=== PATIENT | female | born 1960 | race Hispanic/Latino ===

== ENCOUNTER 2020-08-16 11:04 | Observation (INO) | payer SELFPAY ==
[2020-08-16 11:47] LABS: #Basophils 0.1 thou/uL (0.0-0.2); #Eosinphils 0.2 thou/uL (0.0-0.7); #Lymphocytes 2.2 thou/uL (1.20-3.40); #Monocytes 0.5 thou/uL (0.11-0.59); %Basophils 0.9 % (0.0-1.0); %Eosinophils 2.3 % (0.0-10.0); %Lymphocytes 24.4 % (21.0-51.0); %Monocytes 6.1 % (0.0-10.0); %Neutrophils 66.4 % (42.0-75.0); Hemoglobin 13.6 g/dL (12.0-16.0); Mean Corpuscular HGB CONC 33.8 g/dL (32.0-36.0); Mean Corpuscular Hemoglobin 31.6 pg (27.0-31.0); Mean Corpuscular Volume 93.5 fL (78.0-98.0); Mean Platelet Volume 8.1 fL (7.4-10.4); Platelet Count 237 thou/uL (130-400); RBC Distribution Width 11.5 % (11.5-14.5); Red Blood Cell (RBC) Count 4.31 mill/uL (4.20-5.40)
[2020-08-16] MEDS ORDERED: Aspirin 325 MG TAB ONE (11:47)
[2020-08-16] MEDS ORDERED: Labetalol HCl 100 MG/20 ML VIAL ONE (11:47)
[2020-08-16] MEDS ORDERED: Nitroglycerin 2% Ointment 1 INCH/1 GM Packet ONE (11:47)
--- NOTE | 2020-08-16 12:09 | RAD ---
PORTABLE CHEST: Date: 08/16/2020 HISTORY: Syncope. FINDINGS: Heart size within normal limits. There are atherosclerotic changes of the aorta. Lungs are clear of a ny infiltrative process. IMPRESSION: No active intrathoracic disease. POS: SARAH
[2020-08-16 12:20] LABS: ALT (SGPT) 21 U/L (8-55); AST (SGOT) 41 U/L (5-34); Albumin 3.8 g/dL (3.5-5.0); Alkaline Phosphatase 113 U/L (40-110); Anion Gap 14 mmol/L (10-20); BUN (Urea Nitrogen) 12 mg/dL (9.8-20.1); Bilirubin, Total 0.3 mg/dL (0.2-1.2); CK (CPK) 65 U/L (29-168); Calc. Creatinine Clearance 0 mL/min (70-130); Calcium 9.1 mg/dL (7.8-10.44); Carbon Dioxide 25 mmol/L (22-29); Chloride 104 mmol/L (98-107); Estimated GFR-MDRD Greater than 90; Globulin 3.9 g/dL (2.4-3.5); Glucose 127 mg/dL (70-105); Lipase 57 U/L (8-78); Potassium 3.6 mmol/L (3.5-5.1); Protein, Total 7.7 g/dL (6.0-8.3); Sodium 139 mmol/L (136-145)
[2020-08-16] MEDS ORDERED: Nitroglycerin 0.4 MG TAB (25 Tab Bottle) SL PRN (14:44)
[2020-08-16] MEDS ORDERED: Acetaminophen 650 MG Suppository PR PRN (14:47)
[2020-08-16 16:30] LABS: Lactic Acid 1.3 mmol/L (0.5-2.2)
[2020-08-16] MEDS ORDERED: Amlodipine 10 MG TAB PO SCH (17:30)
[2020-08-16] MEDS: Acetaminophen 325 MG TAB PO PRN (17:41)
[2020-08-16] MEDS ORDERED: Acetaminophen 325 MG TAB ONE (17:43)
--- NOTE | 2020-08-16 18:41 | PDOC.HHP ---
Hospitalist HPI - History of Present Illness History of Present Illness: ADMISSION DATE: 08/16/2020 TIME OF ASSESSMENT: 1400 PRIMARY CARE PHYSICIAN: None CHIEF COMPLAINT: Chest pain HPI: Patient presents to emergency department with complaints of chest heaviness that started at approximately 9:30 AM this morning. Immediately after she felt a tingling sensation in both hands and noted a metallic taste in her mouth. She lowered herself to the ground due to feeling lightheaded. When she was asked to rate the severity of her pain the patient states she did not have pain but felt the discomfort that was unable to rate in times of severity. Patient states that she received nitroglycerin and it immediately relieved her discomfort. Denies having any pain like this in the past. Has never been on any medications or been diagnosed with any comorbidities. Does not have a primary care physician and has never had any cardiac work-up in the past. Patient states she is a very active at home [place] and has animals that she cares for. Denies ever experiencing any type of exertional chest pain or shortness of breath. Denies any recent cough or hemoptysis. No fevers or chills. No nausea vomiting or abdominal pain. Other review of systems are negative. ED COURSE: In the emergency department the patient had an EKG which showed normal sinus rhythm with a heart rate of 90. No ST changes or T wave abnormalities were present. Lab studies done showed a normal full blood count. Initial troponin was negative. Sodium 139, potassium 3.6, BUN 12, creatinine 0.65, GFR greater than 90. Coast 127. LFTs notable for an elevated alkaline phosphatase of 113 and an AST of 41. Lipase normal. Chest x-ray is unremarkable. Initial presentation she was hypertensive at 177/96 therefore treated for h ypertensive urgency and given labetalol 20 mg IV Also given 325 mg of aspirin and 1 inch of Nitro-Bid. PAST MEDICAL HISTORY: None PAST SURGICAL HISTORY: None SOCIAL HISTORY: Patient reports a history of smoking but she quit a year ago. Currently she vapes but not on a regular basis. Denies any drug use. Reports daily alcohol consumption. She drinks 1 to 2 glasses of wine every night. FAMILY HISTORY: Her mother of a heart attack in her 80s. Her sisters have diabetes. ALLERGIES: Benadryl CURRENT MEDICATIONS: 1. Centrum silver 2. Biotin 3. Ginkoba 4. Fish oil Hospitalist ROS - Medication Medications: Active Medications Generic Name Dose Route Start Last Admin Trade Name Pricilla PRN Reason Stop Dose Admin Acetaminophen 650 mg 08/16/20 14:47 08/16/20 17:41 Acetaminophen 325 Mg Tab PO 650 mg Q4H PRN Administration Headache/Fever/Mild Pain (1-3) - Exam General Appearance: NAD, awake alert General - other findings: VS HR 86, BP 146/81, respirate 14, O2 sat 98% on room air Eye: PERRL, anicteric sclera ENT: normocephalic atraumatic, no oropharyngeal lesions Neck: supple, no lymphadenopathy Heart: RRR, no murmur, no gallops, no rubs, normal peripheral pulses Respiratory: CTAB, no wheezes, no rales, normal chest expansion Gastrointestinal: soft, non-tender, non-distended, normal bowel sounds Extremities: no edema Skin: normal turgor, no lesions, no rashes Neurological: cranial nerve grossly intact, normal sensation to touch Musculoskeletal: normal tone, normal strength Psychiatric: normal affect, normal behavior, A&O x 3 Hospitalist Results - Labs Result Diagrams: 08/16/20 11:25 08/16/20 11:25 Lab results: WBC 9.0 thou/uL (4.8-10.8) 08/16/20 11:25 Hgb 13.6 g/dL (12.0-16.0) 08/16/20 11:25 Hct 40.3 % (36.0-47.0) 08/16/20 11:25 MCV 93.5 fL (78.0-98.0) 08/16/20 11:25 Plt Count 237 thou/uL (130-400) 08/16/20 11:25 Neutrophils % 66.4 % (42.0-75.0) 08/16/20 11:25 Sodium 139 mmol/L (136-145) 08/16/20 11:25 Potassium 3.6 mmol/L (3.5-5.1) 08/16/20 11:25 Chloride 104 mmol/L (98-107) 08/16/20 11:25 Carbon Dioxide 25 mmol/L (22-29) 08/16/20 11:25 BUN 12 mg/dL (9.8-20.1) 08/16/20 11:25 Creatinine 0.65 mg/dL (0.6-1.1) 08/16/20 11:25 Glucose 127 mg/dL (70-105) H 08/16/20 11:25 Lactic Acid 1.3 mmol/L (0.5-2.2) 08/16/20 15:59 Calcium 9.1 mg/dL (7.8-10.44) 08/16/20 11:25 Total Bilirubin 0.3 mg/dL (0.2-1.2) 08/16/20 11:25 AST 41 U/L (5-34) H 08/16/20 11:25 ALT 21 U/L (8-55) 08/16/20 11:25 Alkaline Phosphatase 113 U/L (40-110) H 08/16/20 11:25 Creatine Kinase 65 U/L (29-168) 08/16/20 11:25 Troponin I Less than 0.010 ng/mL (< 0.028) 08/16/20 15:59 Serum Total Protein 7.7 g/dL (6.0-8.3) 08/16/20 11:25 Albumin 3.8 g/dL (3.5-5.0) 08/16/20 11:25 Lipase 57 U/L (8-78) 08/16/20 11:25 Hospitalist H&P A/P - Problem (1) Chest pain Code(s): R07.9 - CHEST PAIN, UNSPECIFIED Status: Acute Assessment and Plan: Cardiac monitoring. Continue to trend troponins. Check d-dimer. Stress test in the AM. NPO after midnight. (2) Hypertensive urgency Code(s): I16.0 - HYPERTENSIVE URGENCY Status: Acute Assessment and Plan: Monitor BP. Amlodipine 10 mg PO if SBP >150. Consider discharging on anti-hypertensives (no known history of HTN). (3) Transaminitis Code(s): R74.01 - ELEVATION OF LEVELS OF LIVER TRANSAMINASE LEVELS Status: Acute Assessment and Plan: Likely due to alcohol consumption. Repeat LFTs in the AM. (4) Daily consumption of alcohol Code(s): Z78.9 - OTHER SPECIFIED HEALTH STATUS Status: Acute Assessment and Plan: ASE protocol monitoring. Unknown hx of withdrawals. - Plan Plan: DVT prophylaxis: Patient is ambulatory. GI Prophylaxis: Famotidine 20 mg BID. CODE STATUS FULL
[2020-08-16 22:09] VITALS: BMI 27.5
[2020-08-16] MEDS ORDERED: Sodium Chloride 0.9% 1,000 ML IV SCH (23:00)
[2020-08-17 04:48] LABS: Hemoglobin A1c 5.6 % (4.0-6.0)
[2020-08-17 05:06] LABS: Cardiac Risk 3.7 (Less than 4.5)
[2020-08-17] MEDS: Acetaminophen 325 MG TAB PO PRN (06:32)
[2020-08-17] MEDS ORDERED: Bisacodyl 5 MG TAB PO PRN (08:49)
[2020-08-17] MEDS ORDERED: Ondansetron ODT 4 MG TAB PO PRN (08:49)
[2020-08-17] MEDS ORDERED: hydrALAZINE 20 MG/ML VIAL SLOW IVP PRN (08:49)
[2020-08-17] MEDS ORDERED: Loperamide HCl 2 MG CAP PO PRN (08:49)
[2020-08-17] MEDS ORDERED: Zolpidem Tartrate 5 MG TAB PO PRN (08:49)
[2020-08-17] MEDS ORDERED: Senokot S 8.6-50 MG TAB PO PRN (08:49)
[2020-08-17] MEDS ORDERED: Diabetic Tussin 200 MG/10 ML UDCUP PO PRN (08:49)
[2020-08-17] MEDS ORDERED: Ondansetron PF 4 MG/2 ML Vial IVP PRN (08:49)
[2020-08-17] MEDS ORDERED: HYDROcodone/Acetaminophen 5/325 mg Tablet PO PRN (08:49)
[2020-08-17] MEDS ORDERED: Cepastat Lozenges 1 LOZ PO PRN (08:49)
[2020-08-17] MEDS ORDERED: Calcium Carbonate 500 MG ChewTAB PO PRN (08:49)
[2020-08-17] MEDS ORDERED: Sodium Chloride 0.65% Nasal 44 ML BOT EA NARE PRN (08:49)
[2020-08-17] MEDS ORDERED: FLU VACC QS2020-21(6MOS UP)/PF 60 MCG/0.5 ML SYRINGE IM ONE (09:00)
[2020-08-17] MEDS ORDERED: Aspirin 81 mg Enteric Coated Tablet PO SCH (09:00)
--- NOTE | 2020-08-17 10:45 | PDOC.HOSPP ---
- Subjective Encounter Date: 08/17/20 Encounter Time: 07:30 Subjective: Patient seen and examined. No new complaints. No overnight events - Objective Vital Signs & Weight: Vital Signs (12 hours) Temp Pulse Resp BP Pulse Ox 08/17/20 07:22 97.8 F 70 28 H 143/67 H 97 08/17/20 04:00 97.7 F 77 16 129/70 95 08/17/20 00:00 98.0 F 74 18 116/63 93 L Weight Weight 170 lb 8 oz I&O: 08/16/20 08/17/20 08/18/20 06:59 06:59 06:59 Intake Total 330 Balance 330 Result Diagrams: 08/16/20 11:25 08/16/20 11:25 Radiology Reviewed by me: Yes EKG Reviewed by me: Yes Hospitalist ROS - Review of Systems Constitutional: denies: fever, chills, sweats, weakness, malaise, other ENT: denies: ear pain, ear discharge, nose pain, nose discharge, nose congestion, mouth pain, mouth swelling, throat pain, throat swelling, other Respiratory: denies: cough, dry, shortness of breath, hemoptysis, SOB with excertion, pleuritic pain, sputum, wheezing, other Cardiovascular: denies: chest pain, palpitations, orthopnea, paroxysmal noc. dyspnea, edema, light headedness, other Gastrointestinal: denies: nausea, vomiting, abdominal pain, diarrhea, constipation, melena, hematochezia, other Genitourinary: denies: dysuria, frequency, incontinence, hematuria, retention, other Musculoskeletal: denies: neck pain, shoulder pain, arm pain, back pain, hand pain, leg pain, foot pain, other Skin: denies: rash, lesions, radu, bruising, other - Medication Medications: Active Medications Generic Name Dose Route Start Last Admin Trade Name Freq PRN Reason Stop Dose Admin Acetaminophen 650 mg 08/16/20 14:47 08/17/20 06:32 Acetaminophen 325 Mg Tab PO 650 mg Q4H PRN Administration Headache/Fever/Mild Pain (1-3) Sodium Chloride 10 ml 08/16/20 21:00 08/17/20 01:27 Flush - Normal Saline 10 Ml Syringe IVF 10 ml Q12HR RAYMON Administration - Exam General Appearance: NAD, awake alert Eye: PERRL, anicteric sclera ENT: normocephalic atraumatic, no oropharyngeal lesions Neck: symmetric, no JVD, no thyromegaly Heart: RRR, no murmur, no gallops, no rubs Respiratory: CTAB, no wheezes, no rales, no ronchi Gastrointestinal: soft, non-tender, non-distended, normal bowel sounds Extremities: no cyanosis, no clubbing, no edema Skin: normal turgor, no lesions Neurological: no focal deficits Musculoskeletal: normal tone, normal strength Psychiatric: normal affect, normal behavior Hosp A/P (1) Chest pain Code(s): R07.9 - CHEST PAIN, UNSPECIFIED Status: Acute Qualifiers: Chest pain type: unspecified Qualified Code(s): R07.9 - Chest pain, unspecified (2) Hypertensive urgency Code(s): I16.0 - HYPERTENSIVE URGENCY Status: Chronic (3) Daily consumption of alcohol Code(s): Z78.9 - OTHER SPECIFIED HEALTH STATUS Status: Chronic (4) Transaminitis Code(s): R74.01 - ELEVATION OF LEVELS OF LIVER TRANSAMINASE LEVELS Status: Chronic - Plan old records reviewed/req Patient is plan for a stress test today, If stress test is negative then will consider discharge Regarding new hypertension I will start amlodipine 5 mg p.o. daily on discharge Patient is instructed to follow-up with primary care physician Patient is advised to avoid alcohol abuse.
[2020-08-17] MEDS ORDERED: ADENOSINE 60 MG/20 ML VIAL ONE (13:13)
--- NOTE | 2020-08-17 13:24 | NM ---
NUCLEAR MEDICINE CARDIAC MYOCARDIAL PERFUSION SPECT EJECTION FRACTION STUDY WALL MOTION CINE: DATE: 08/17/2020 HISTORY: 59-year-old hypertensive female smoker presents with acute chest pain TECHNIQUE: Number of days: 1 Rest study: Technetium 99m-sestamibi (Cardiolite) dose: 10.3 mCi Pharmacologic stress: Adenosine dose: 43.1 mg Stress study: Technetium 99m-sestamibi (Cardiolite) dose: 29.1 mCi FINDINGS: CARDIAC (MYOCARDIAL PERFUSION) SPECT Distribution of sestamibi is homogeneous throughout the left ventricle, with no fixed or reversible m yocardial perfusion defects. EJECTION FRACTION STUDY Left ventricular EF = 83 % WALL MOTION CINE The left ventricular wall motion is normal. There is normal systolic wall thickening. IMPRESSION: Normal.
[2020-08-17 13:53] LABS: SARS-CoV-2 MS2 Positive; SARS-CoV-2 N Gene Negative; SARS-CoV-2 S Gene Negative; SARS-CoV-2 by NAA Not Detected (NotDetected); SARS-CoV-2 orf1ab Negative
[2020-08-17 15:36] VITALS: BP 128/69; TEMP 98.1
--- NOTE | 2020-08-18 07:14 | PDOC.DS.DS ---
Provider - Provider Date of Admission: 08/16/20 13:29 Date of Discharge: 08/17/20 Admitting Provider: Fransisca Dubose MD Primary Care Physician: NO PCP PROVIDER Course - Hospital Course Hospital Course: 59-year-old female who has a history of alcohol abuse who came to emergency room with chest pain, patient was admitted for chest pain rule out acute coronary syndrome, during this admission patient was found with elevated blood pressure, she does not have any previous history of hypertension, patient had serial cardiac enzymes which were negative for any acute coronary syndrome, patient underwent stress test that came back negative. We started amlodipine on discha rge. Patient was counseled to avoid alcohol abuse. Resuscitation Status: 08/16/20 14:47 Resuscitation Status Routine Co-Sign Provider: Resuscitation Status: FULL: Full Resuscitation - Labs Lab Results: 08/16/20 11:25 08/16/20 11:25 Abnormal Lab Results - Last 48 hrs 08/16/20 11:25: MCH 31.6 H 08/16/20 11:25: AST 41 H, Alkaline Phosphatase 113 H, Globulin 3.9 H, Albumin/Globulin Ratio 1.0 L 08/16/20 15:59: D-Dimer Less than 0.27 L - Physical Exam Vitals: Weight Weight 170 lb 8 oz Physical Exam: The patient was seen and examined on the day of discharge. Problem - Problem (1) Chest pain Code(s): R07.9 - CHEST PAIN, UNSPECIFIED Status: Acute Qualifiers: Chest pain type: unspecified Qualified Code(s): R07.9 - Chest pain, unspecified (2) Hypertensive urgency Code(s): I16.0 - HYPERTENSIVE URGENCY Status: Chronic (3) Daily consumption of alcohol Code(s): Z78.9 - OTHER SPECIFIED HEALTH STATUS Status: Chronic (4) Transaminitis Code(s): R74.01 - ELEVATION OF LEVELS OF LIVER TRANSAMINASE LEVELS Status: Chronic Plan - Discharge Medications Prescriptions: Folic Acid 1 mg PO DAILY #30 tablet Amlodipine [Norvasc] 5 mg PO DAILY #30 tab Famotidine [Pepcid] 20 mg PO BID #60 tab Thiamine 100 mg PO DAILY #30 tab Cyanocobalamin (Vitamin B-12) [Vitamin B-12] 1,000 mcg PO DAILY #30 tab Home Medications: Medication Instructions Recorded Confirmed Type Amlodipine [Norvasc] 5 mg PO DAILY #30 tab 08/17/20 Rx Cyanocobalamin (Vitamin B-12) 1,000 mcg PO DAILY #30 tab 08/17/20 Rx [Vitamin B-12] Famotidine [Pepcid] 20 mg PO BID #60 tab 08/17/20 Rx Folic Acid 1 mg PO DAILY #30 tablet 08/17/20 Rx Thiamine 100 mg PO DAILY #30 tab 08/17/20 Rx Allergies: diphenhydramine [From Benadryl] Allergy (Verified 08/16/20 22:11) itching pt stated - Discharge Instructions Activity:: Activity as Tolerated Nourishment:: Heart Healthy Diet Therapies:: Not Applicable Equipment/Supplies:: Not Applicable IV Therapy:: Not Applicable - Follow up Plan Referrals: PROVIDER,NO PCP [Primary Care Provider] - Disposition: HOME Quality - Care Measures CORE MEASURES:: N/A
[2020-08-18] MEDS ORDERED: Cyanocobalamin (Vitamin B-12) 1,000 MCG TAB PO SCH (09:00)
== END 2020-08-17 16:16 | disposition home or self-care (01) ==
LOC: ERS 11:04 → ERHOLD 13:29 → 2SE 21:52
PROVIDERS: ADMIT Internal Medicine; ATTEND Internal Medicine
DX: I16.0 Hypertensive urgency (principal); R07.89 Other chest pain; R74.01 Elevation of levels of liver transaminase levels; Z79.82 Long term (current) use of aspirin; Z79.899 Other long term (current) drug therapy; Z87.891 Personal history of nicotine dependence; Z88.8 Allergy status to other drugs, medicaments and biological substances; Z20.828 Contact with and (suspected) exposure to other viral communicable diseases
CPT/HCPCS: 36415; 71045; 78452; 80053; 80061; 82550; 83036; 83605; 83690; 83735; 84443; 84484; 85025; 85379; 87635; 93005; 93017; 96374; A9500; G0378; J0153; U0003

== ENCOUNTER 2023-01-19 12:38 | Inpatient (IN) | payer SELFPAY ==
[2023-01-19 17:07] VITALS: BMI 27.6
[2023-01-19] MEDS ORDERED: hydrALAZINE 20 MG/ML VIAL SLOW IVP PRN (17:27)
[2023-01-19] MEDS ORDERED: Labetalol HCl 100 MG/20 ML VIAL SLOW IVP PRN (17:27)
[2023-01-19] MEDS ORDERED: Temazepam 15 MG CAP PO PRN (17:27)
[2023-01-19] MEDS ORDERED: Acetaminophen 325 MG TAB PO PRN (17:27)
[2023-01-19] MEDS ORDERED: Morphine 2 MG/ML VIAL SLOW IVP PRN (17:29)
[2023-01-19] MEDS ORDERED: Morphine 4 MG/ML VIAL SLOW IVP PRN (17:29)
[2023-01-19] MEDS ORDERED: Ondansetron ODT 4 MG TAB PO PRN (17:35)
[2023-01-19] MEDS ORDERED: Ondansetron PF 4 MG/2 ML Vial IVP PRN (17:35)
[2023-01-19] MEDS: Dexamethasone 4 mg/ml Vial SLOW IVP SCH ×2 (18:26→23:25)
[2023-01-19] MEDS: HYDROcodone/Acetaminophen 10/325 mg Tablet PO PRN ×2 (18:34→23:25)
[2023-01-20] MEDS: Dexamethasone 4 mg/ml Vial SLOW IVP SCH ×3 (05:43→17:20)
[2023-01-20 06:31] LABS: #Lymphocytes 1.6 thou/uL (1.20-3.40); #Monocytes 0.2 thou/uL (0.11-0.59); %Basophils 0.1 % (0.0-1.0); %Eosinophils 0.1 % (0.0-10.0); %Lymphocytes 13.7 % (21.0-51.0); %Neutrophils 84.1 % (42.0-75.0); Hemoglobin 12.6 g/dL (12.0-16.0); Mean Corpuscular HGB CONC 31.6 g/dL (32.0-36.0); Mean Corpuscular Hemoglobin 29.5 pg (27.0-31.0); Mean Corpuscular Volume 93.4 fl (78.0-98.0); Mean Platelet Volume 8.1 fL (7.4-10.4); Platelet Count 239 10x3/uL (130-400); Red Blood Cell (RBC) Count 4.26 mill/uL (4.20-5.40); White Blood Cell (WBC) Count 11.9 10x3/uL (4.8-10.8)
[2023-01-20 06:54] LABS: Anion Gap 13 mmol/L (10-20); BUN (Urea Nitrogen) 12 mg/dL (9.8-20.1); Calc. Creatinine Clearance 75 mL/min (70-130); Calcium 8.7 mg/dL (7.8-10.44); Carbon Dioxide 25 mmol/L (23-31); Chloride 103 mmol/L (98-107); Estimated GFR 70; Glucose 136 mg/dL (80-115); Sodium 137 mmol/L (136-145)
[2023-01-20] MEDS: HYDROcodone/Acetaminophen 10/325 mg Tablet PO PRN ×2 (08:42→15:02)
[2023-01-20] MEDS ORDERED: NIFEdipine XL 60 MG TAB PO SCH (09:00)
[2023-01-20] MEDS ORDERED: Lisinopril 20 MG TAB PO SCH (09:00)
[2023-01-20] MEDS ORDERED: Aspirin 81 mg Enteric Coated Tablet PO SCH (09:00)
[2023-01-20 20:33] VITALS: BP 142/78; TEMP 98.4
== END 2023-01-20 22:30 | disposition home or self-care (01) | DRG 54 ==
LOC: NEURO 16:42
PROVIDERS: ADMIT Internal Medicine; ATTEND Internal Medicine
DX: D42.0 Neoplasm of uncertain behavior of cerebral meninges (principal); G93.6 Cerebral edema; I16.0 Hypertensive urgency; I10 Essential (primary) hypertension; Z88.8 Allergy status to other drugs, medicaments and biological substances; Z79.899 Other long term (current) drug therapy; Z87.891 Personal history of nicotine dependence; Z80.42 Family history of malignant neoplasm of prostate
CPT/HCPCS: 36415; 80048; 85025; J1100

== ENCOUNTER 2023-01-24 14:04 | Inpatient (IN) | payer SELFPAY ==
[~2023-01-24 14:04] MED LIST: Iopamidol-370 76% 500 ML MDV (1 ML CHARGE) ONE
[2023-01-24 15:03] LABS: #Eosinphils 0.1 thou/uL (0.0-0.7); #Lymphocytes 2.5 thou/uL (1.20-3.40); #Neutrophils 13.3 thou/uL (1.40-6.50); %Basophils 0.1 % (0.0-1.0); %Eosinophils 0.3 % (0.0-10.0); %Lymphocytes 14.8 % (21.0-51.0); %Monocytes 6.1 % (0.0-10.0); %Neutrophils 78.7 % (42.0-75.0); Hemoglobin 14.1 g/dL (12.0-16.0); Mean Corpuscular HGB CONC 35.9 g/dL (32.0-36.0); Mean Platelet Volume 8.2 fL (7.4-10.4); Platelet Count 270 10x3/uL (130-400); RBC Distribution Width 11.2 % (11.5-14.5); Red Blood Cell (RBC) Count 4.28 mill/uL (4.20-5.40); White Blood Cell (WBC) Count 16.9 10x3/uL (4.8-10.8)
[2023-01-24 15:20] LABS: Anion Gap 15 mmol/L (10-20); BUN (Urea Nitrogen) 28 mg/dL (9.8-20.1); Calc. Creatinine Clearance 0 mL/min (70-130); Calcium 9.8 mg/dL (7.8-10.44); Carbon Dioxide 23 mmol/L (23-31); Chloride 100 mmol/L (98-107); Estimated GFR 63; Glucose 131 mg/dL (80-115); Sodium 134 mmol/L (136-145)
[2023-01-24] MEDS ORDERED: Ibuprofen 800 MG TAB ONE (16:18)
[2023-01-24] MEDS ORDERED: Acetaminophen 500 MG TAB ONE (16:18)
[2023-01-24] MEDS ORDERED: Ondansetron PF 4 MG/2 ML Vial IVP PRN ×2 (16:22→16:37)
[2023-01-24] MEDS ORDERED: Acetaminophen 325 MG TAB PO PRN (16:22)
[2023-01-24] MEDS ORDERED: cefTRIAXone\\ROCEPHIN 1 GM in Sodium Chloride 0.9% 100 ML IVPB SCH (16:30)
[2023-01-24] MEDS ORDERED: Sodium Chloride 0.9% 1,000 ML IV SCH (16:30)
[2023-01-24] MEDS ORDERED: Acetaminophen/Codeine 30-300mg Tablet PO PRN (16:41)
[2023-01-24] MEDS ORDERED: Morphine 2 MG/ML VIAL SLOW IVP PRN (16:41)
[2023-01-24 16:47] LABS: PTT 24.4 sec (22.9-36.1); Prothrombin Time 13.7 sec (12.0-14.7)
[2023-01-24 18:15] VITALS: BMI 27.4
[2023-01-24] MEDS: HYDROcodone/Acetaminophen 5/325 mg Tablet PO PRN (20:19)
[2023-01-24] MEDS: Dexamethasone 1 MG TAB PO SCH (20:19)
[2023-01-25 06:12] LABS: #Eosinphils 0.1 thou/uL (0.0-0.7); #Lymphocytes 3.1 thou/uL (1.20-3.40); #Monocytes 1.2 thou/uL (0.11-0.59); #Neutrophils 14.9 thou/uL (1.40-6.50); %Basophils 0.1 % (0.0-1.0); %Eosinophils 0.6 % (0.0-10.0); %Lymphocytes 16.1 % (21.0-51.0); %Monocytes 6.4 % (0.0-10.0); %Neutrophils 76.9 % (42.0-75.0); Hemoglobin 14.5 g/dL (12.0-16.0); Mean Corpuscular HGB CONC 33.8 g/dL (32.0-36.0); Mean Corpuscular Hemoglobin 31.3 pg (27.0-31.0); Mean Corpuscular Volume 92.7 fl (78.0-98.0); Mean Platelet Volume 8.2 fL (7.4-10.4); Platelet Count 326 10x3/uL (130-400); RBC Distribution Width 11.3 % (11.5-14.5); Red Blood Cell (RBC) Count 4.61 mill/uL (4.20-5.40); White Blood Cell (WBC) Count 19.4 10x3/uL (4.8-10.8)
[2023-01-25] MEDS ORDERED: Lidocaine 1% MPF 2 ML VIAL ONE (06:28)
[2023-01-25 06:29] LABS: Anion Gap 13 mmol/L (10-20); BUN (Urea Nitrogen) 27 mg/dL (9.8-20.1); Calc. Creatinine Clearance 67 mL/min (70-130); Calcium 9.4 mg/dL (7.8-10.44); Carbon Dioxide 24 mmol/L (23-31); Chloride 103 mmol/L (98-107); Estimated GFR 59; Glucose 112 mg/dL (80-115); Potassium 4.5 mmol/L (3.5-5.1); Sodium 135 mmol/L (136-145)
[2023-01-25] MEDS ORDERED: Fentanyl 250 MCG/5 ML VIAL ONE (06:32)
[2023-01-25] MEDS ORDERED: ePHEDrine Sulfate 50 MG/10 ML VIAL ONE (07:07)
[2023-01-25] MEDS ORDERED: Rocuronium Bromide 10 MG/ML (10ML VIAL) ONE (07:07)
[2023-01-25] MEDS ORDERED: PROPOFOL 200 MG/20 ML VIAL ONE (07:07)
[2023-01-25] MEDS ORDERED: Dexamethasone 20 MG/5 ML VIAL ONE (07:07)
[2023-01-25] MEDS ORDERED: Lidocaine 1% PF 5 ML VIAL ONE (07:07)
[2023-01-25] MEDS ORDERED: Ondansetron PF 4 MG/2 ML Vial ONE (07:07)
[2023-01-25] MEDS ORDERED: Promethazine HCl 25 MG/ML VIAL IM PRN (07:09)
[2023-01-25] MEDS ORDERED: Ondansetron HCl/PF 4 MG/2 ML Vial IVP PRN (07:09)
[2023-01-25] MEDS ORDERED: HYDROmorphone 2 MG/ML VIAL SLOW IVP PRN (07:09)
[2023-01-25] MEDS ORDERED: Meperidine HCl/PF 25 MG/ML VIAL SLOW IVP PRN ×2 (07:09)
[2023-01-25] MEDS ORDERED: Bacitracin Zinc Ointment 30 gm TUBE ONE (07:13)
[2023-01-25] MEDS ORDERED: Papaverine 60 MG/2 ML VIAL ONE (07:13)
[2023-01-25] MEDS ORDERED: CEFAZOLIN 2 GM VIAL ONE (07:23)
[2023-01-25] MEDS ORDERED: Sodium Chloride 0.9% 100 ML ONE (07:23)
[2023-01-25] MEDS ORDERED: SUGAMMADEX SODIUM 200 MG/2 ML VIAL ONE (09:19)
[2023-01-25] MEDS ORDERED: hydrALAZINE 20 MG/ML VIAL SLOW IVP PRN (09:34)
[2023-01-25] MEDS ORDERED: Labetalol HCl 100 MG/20 ML VIAL SLOW IVP PRN (09:34)
[2023-01-25] MEDS ORDERED: Labetalol HCl 100 MG/20 ML VIAL ONE (09:51)
[2023-01-25] MEDS ORDERED: fentaNYL 50 mcg/mL 1 mL Vial ONE ×5 (10:12→11:34)
[2023-01-25] MEDS ORDERED: hydrALAZINE 20 MG/ML VIAL ONE (10:18)
[2023-01-25] MEDS: NIFEdipine XL 60 MG TAB PO SCH (12:41)
[2023-01-25] MEDS: Lisinopril 20 MG TAB PO SCH (12:42)
[2023-01-25] MEDS: HYDROcodone/Acetaminophen 5/325 mg Tablet PO PRN (12:47)
[2023-01-25] MEDS: Dexamethasone 1 MG TAB PO SCH (13:14)
[2023-01-25] MEDS: CEFAZOLIN 2 GM in Sodium Chloride 0.9% 100 ML IVPB SCH ×2 (13:59→21:17)
[2023-01-25] MEDS ORDERED: HYDROcodone/Acetaminophen 10/325 mg Tablet PO PRN (16:26)
[2023-01-25] MEDS: HYDROcodone/Acetaminophen 10/325 mg Tablet PO PRN (18:19)
[2023-01-25] MEDS ORDERED: Dexamethasone 4 mg/ml Vial SLOW IVP SCH (21:00)
[2023-01-25] MEDS: Acetaminophen 325 MG TAB PO PRN (22:43)
[2023-01-26] MEDS: HYDROcodone/Acetaminophen 10/325 mg Tablet PO PRN ×4 (02:26→20:50)
[2023-01-26] MEDS: Acetaminophen 325 MG TAB PO PRN (07:46)
[2023-01-26] MEDS: Dexamethasone 4 mg/ml Vial SLOW IVP SCH (08:35)
[2023-01-26] MEDS: NIFEdipine XL 60 MG TAB PO SCH (08:35)
[2023-01-26] MEDS: Lisinopril 20 MG TAB PO SCH (08:35)
[2023-01-27] MEDS: HYDROcodone/Acetaminophen 10/325 mg Tablet PO PRN (07:56)
[2023-01-27] MEDS: NIFEdipine XL 60 MG TAB PO SCH (08:07)
[2023-01-27] MEDS: Lisinopril 20 MG TAB PO SCH (08:07)
[2023-01-27] MEDS: Dexamethasone 4 mg/ml Vial SLOW IVP SCH (08:07)
[2023-01-27 08:51] VITALS: BP 129/77; TEMP 98.3
== END 2023-01-27 11:45 | disposition home or self-care (01) | DRG 27 ==
LOC: ERS 14:04 → SJJU 17:38 → CCU 01-25 07:28 → SURG A 01-26 17:11
PROVIDERS: ADMIT Surgery; ATTEND Surgery
PROC: 00B10ZX Excision of Cerebral Meninges, Open Approach, Diagnostic (ICD-10-PCS; principal; 2023-01-25)
DX: D32.0 Benign neoplasm of cerebral meninges (principal); I10 Essential (primary) hypertension; F17.210 Nicotine dependence, cigarettes, uncomplicated; Z88.8 Allergy status to other drugs, medicaments and biological substances
CPT/HCPCS: 36415; 70450; 71275; 80048; 84484; 85025; 85610; 85730; 88307; 88341; 88342; 88360; 93005; C1713; C1776; J0360; J1100; J2272; J2405; J2440; J2704; J3010; J3490; J8540; Q9967